=== PATIENT | female | born 1955 | race Caucasian/White ===

== ENCOUNTER 2018-07-21 18:15 | Emergency (ER) | payer MEDICAID ==
[~2018-07-21] VITALS: Ht 162.6 cm; Wt 74.8 kg
[2018-07-21 18:15] VITALS: BP 128/74
--- NOTE | 2018-07-21 18:15 | NUR ---
PT DENIS BLS TO ER BED 07
--- NOTE | 2018-07-21 18:25 | NUR ---
X-RAY AT BEDSIDE AT THIS TIME
--- NOTE | 2018-07-21 18:27 | NUR ---
PT BIBA C/O COUGH X 1 WK. PT HAS MOIST HACKING COUGH. RR EVEN, NON LABORED, O2 SAT 98% ON RA, BREATH SOUNDS CLEAR THROUGHOUT. PER MANAGER SITE, YANIV HUERTAS, N/V/D. PT HAS PRESSURE ULCER ON PLANTAR SURFACE OF LT TOES, AND PT JUST FINISHED KEFLEX FOR WOUND. LT ARM CONTRACTED. VSS. ALEXIS AMAYA TO SEE PT MEDHX:MMR, OSPETOPORESIS, SEIZURE, CVA LT HEMIPARESIS, HTN Addendum: 07/21/18 at 1835 by EMMA PT SPEECH IS DELAYED AND CONFUSED, GCS 14, PER CAREGIVER THIS IS PT BASELINE.
--- NOTE | 2018-07-21 19:29 | NUR ---
ASSUMED CARE FOR PT, VSS, PT ALERT TO BASELINE. CAREGIVER STATES PT HAD A 2 MIN SEIZURE 5 MINUTES AGO; SEIZURE PADS APPLIED, PT ON FUR JOINER, SUCTION EQUIP AT BEDSIDE. CAREGIVER AT BEDSIDE. ER MD AWARE. WILL CONTINUE TO MONITOR.
--- NOTE | 2018-07-21 22:40 | NUR ---
DR. TAPIA AT BEDSIDE FOR EVALUATION.
[2018-07-21 23:25] VITALS: BP 121/50
--- NOTE | 2018-07-21 23:25 | NUR ---
Patient discharged with v/s stable. Written and verbal after care instructions given and explained. Patient alert, oriented and verbalized understanding of instructions. Wheel Chair Assisted by caregiver. All questions addressed prior to discharge. ID band removed. Patient advised to follow up with PMD.
== END 2018-07-21 23:25 | disposition home or self-care (01) ==
LOC: MED 18:15
DX: J06.9 Acute upper respiratory infection, unspecified (principal); R56.9 Unspecified convulsions; I10 Essential (primary) hypertension; Z86.73 Personal history of transient ischemic attack (TIA), and cerebral infarction without residual deficits
CPT/HCPCS: 71045; 99283; Q0092